=== PATIENT | female | born 1975 | race Caucasian/White ===

== ENCOUNTER 2022-05-25 13:57 | Emergency (ER) | payer OTHER ==
[~2022-05-25] VITALS: Ht 167.6 cm; Wt 64.9 kg
[2022-05-25] MEDS ORDERED: PROP20TA7 PO (14:12)
[2022-05-25] MEDS ORDERED: SERT100T PO (14:12)
[2022-05-25] MEDS ORDERED: GABA600T12 PO (14:12)
[2022-05-25] MEDS ORDERED: ARIP5TAB10 PO (14:12)
[2022-05-25] MEDS ORDERED: TRAZ150T75 PO (14:12)
[2022-05-25 14:29] LABS: HEMATOCRIT 45.1 % (31.2-41.9); MEAN CORPUSCULAR VOLUME 79.4 fL (75.5-95.3); PLATELET COUNT (AUTO) 276 K/uL (179-408)
[2022-05-25 14:37] LABS: CARBON DIOXIDE 22 mmol/L (21-32); CHLORIDE 101 mmol/L (98-107); CREATININE 0.9 mg/dL (0.6-1.3); GLUCOSE 124 mg/dL (74-106); POTASSIUM 3.3 mmol/L (3.5-5.1); UREA NITROGEN, BLOOD 29 mg/dL (7-18)
[2022-05-25 14:42] LABS: ALANINE AMINOTRANSFERASE 31 U/L (14-59); ALKALINE PHOSPHATASE 62 U/L (50-136); ASPARTATE AMINOTRANSFERASE 10 U/L (15-37); BILIRUBIN,DIRECT 0.1 mg/dL (0.0-0.2); BILIRUBIN,TOTAL 0.7 mg/dL (0.2-1.0); TOTAL PROTEIN, SERUM 8.3 g/dL (6.4-8.2)
[2022-05-25 14:43] LABS: ACETAMINOPHEN < 2.0 ug/mL (10-30)
--- NOTE | 2022-05-25 14:45 | NUR ---
SW consult was requested for a patient in the ER for alcohol intoxication. Patient is a 46-year-old female. Patient presents with depressed mood and congruent affect. Patient states that her primary manager contact is her , Mina ([phone]) and they live together at [id number] [place] [id number] in a one story house. Patient is too intoxicated to perform an accurate assessment. LEXIE provided the patient with substance abuse resources for [address] [address] ([phone]), [facility] [address] [facility] [address] ([phone]), and [facility] [address] [place] [id number] ([phone]) and placed a copy in her chart.
[2022-05-25 14:47] LABS: ETHANOL 30 MG/DL (0-0)
--- NOTE | 2022-05-25 15:44 | NUR ---
Clinical Social Work Note: LEXIE faxed the patient's facesheet to Maxwell at [facility] (fax: [phone]). LEXIE informed nurseHolli.
--- NOTE | 2022-05-25 16:30 | NUR ---
patient summary report and facesheet faxed to [facility]- fax [phone] per Jimi Israel to call ER back with more information.
--- NOTE | 2022-05-25 20:00 | NUR ---
Pt. report received from Holli BAUER.
[2022-05-26 02:38] VITALS: BP 147/65
--- NOTE | 2022-05-26 02:41 | NUR ---
Pt. has been discharged to [facility] for further evaluation. Left awake and alert, tearful but optimistic as per her verbal acceptance and attitude of transfer. Left via ambulance. No acute distress.
== END 2022-05-26 02:40 ==
LOC: ER 13:57
DX: T42.4X2A Poisoning by benzodiazepines, intentional self-harm, initial encounter (principal); T51.0X2A Toxic effect of ethanol, intentional self-harm, initial encounter; Y92.89 Other specified places as the place of occurrence of the external cause; F32.A Depression, unspecified; F41.9 Anxiety disorder, unspecified; F10.10 Alcohol abuse, uncomplicated; Z79.899 Other long term (current) drug therapy; Z20.822 Contact with and (suspected) exposure to COVID-19
CPT/HCPCS: 36415; 85025; A4663; G0480; J7040